=== PATIENT | male | born 1960 | race African-American/Black ===

== ENCOUNTER 2023-03-05 09:32 | Emergency (ER) | payer MEDICAID, OTHER ==
[~2023-03-05] VITALS: Ht 180.3 cm; Wt 81.0 kg
[2023-03-05 09:39] VITALS: BP 143/82; PULSE 73; RESP 20; TEMP 98.2; O2SAT 100
[2023-03-05] MEDS ORDERED: TAMS-11 MT (11:58)
== END 2023-03-05 12:26 | disposition home or self-care (01) ==
LOC: ER 10:07
DX: Z46.6 Encounter for fitting and adjustment of urinary device (principal); Z98.890 Other specified postprocedural states; I10 Essential (primary) hypertension; E05.90 Thyrotoxicosis, unspecified without thyrotoxic crisis or storm
CPT/HCPCS: 99281; Z7610; A4315

== ENCOUNTER 2023-07-16 12:00 | Emergency (ER) | payer OTHER ==
[~2023-07-16] VITALS: Ht 172.7 cm; Wt 101.0 kg
[~2023-07-16 12:00] MED LIST: TAMS-11 MT
[2023-07-16 12:03] VITALS: TEMP 98.7; O2SAT 100
[2023-07-16 15:58] LABS: CLARITY URINE TURBID (CLEAR); COLOR URINE RED (YELLOW); GLUCOSE URINE NEGATIVE (NEGATIVE); KETONES URINE NEGATIVE (NEGATIVE); LEUKOCYTE ESTERASE URINE 3+ (NEGATIVE); NITRITE URINE NEGATIVE (NEGATIVE); OCCULT BLOOD URINE 3+ (NEGATIVE); PH URINE 5.5 (4.5-8.0); PROTEIN URINE 2+ (NEGATIVE); SPECIFIC GRAVITY URINE 1.012 (1.005-1.030); UROBILINOGEN URINE 0.2 E.U./dL (0.2-1.0)
[2023-07-16 16:16] LABS: BACTERIA URINE 3+; RBC URINE TNTC /hpf (0-2); SQUAMOUS EPITHELIAL CELL URINE 1+ /lpf (RARE/1+); WBC URINE TNTC /hpf (0-2)
[2023-07-16] MEDS ORDERED: CEPH500T MT (16:28)
[2023-07-16] MEDS ORDERED: SULF1TAB48 MT (16:31)
[2023-07-16 16:55] VITALS: BP 127/72; PULSE 79; RESP 14
== END 2023-07-16 16:57 | disposition home or self-care (01) ==
LOC: ER 12:00
DX: T83.018A Breakdown (mechanical) of other urinary catheter, initial encounter (principal); N39.0 Urinary tract infection, site not specified; I10 Essential (primary) hypertension; E05.90 Thyrotoxicosis, unspecified without thyrotoxic crisis or storm; Z98.890 Other specified postprocedural states; X58.XXXA Exposure to other specified factors, initial encounter; Y93.89 Activity, other specified; Y92.89 Other specified places as the place of occurrence of the external cause; Y99.8 Other external cause status
CPT/HCPCS: 51702; 81003; 87077; 87186; 99284

== ENCOUNTER 2023-08-12 10:48 | Emergency (ER) | payer OTHER ==
[~2023-08-12] VITALS: Ht 170.2 cm; Wt 91.0 kg
[~2023-08-12 10:48] MED LIST changes: +SULF1TAB48 MT
[2023-08-12 11:04] VITALS: O2SAT 99
[2023-08-12 11:30] VITALS: BP 129/85; PULSE 79; RESP 16; TEMP 98.2
[2023-08-12] MEDS ORDERED: TAMS-11 MT (11:51)
== END 2023-08-12 12:18 | disposition home or self-care (01) ==
LOC: ER 11:04
DX: T83.018A Breakdown (mechanical) of other urinary catheter, initial encounter (principal); I10 Essential (primary) hypertension; E05.90 Thyrotoxicosis, unspecified without thyrotoxic crisis or storm; Z76.0 Encounter for issue of repeat prescription; Z98.890 Other specified postprocedural states; Y92.89 Other specified places as the place of occurrence of the external cause
CPT/HCPCS: 99283